=== PATIENT | male | born 1950 | race Caucasian/White ===

== ENCOUNTER 2024-11-24 12:41 | Outpatient (CLI) | payer MEDICARE, SELFPAY ==
[2024-11-24 12:05] LABS: Abs Immature Grans 0.01 10^3/uL (0.0-0.06); HCT 36.6 % (40.0-50.0); HGB 12.0 g/dL (13.5-17.5); Immature Grans % 0.2 %; MCH 33.0 pg (27.0-33.0); MCHC 32.8 % (32.0-36.0); MCV 101 fL (80-95); MPV 9.5 fL (8.0-11.0); Platelet Count 397 10^3/uL (130-400); RBC 3.64 10^6/uL (4.36-5.78); RDW 15.6 % (11.8-14.1); RDW-SD 56.5 fL; WBC 4.46 10^3/uL (4.4-10.8)
[2024-11-24 12:18] LABS: ALT 22 U/L (16-63); AST 21 U/L (15-37); Albumin 3.9 g/dL (3.4-5.0); Alkaline Phosphatase 75 U/L (46-116); Anion Gap 4.8 mmol/L (3-11); BUN 13 mg/dL (7-18); Bilirubin, Total 0.4 mg/dL (0.2-1.0); CO2 30.2 mmol/L (21.0-32.0); Calcium 9.5 mg/dL (8.5-10.1); Chloride 104 mmol/L (98-107); Estimated GFR 78.49 (mL/min/1.73m2); Glucose 106 mg/dL (74-106); LDH 200 U/L (85-227); Potassium 4.6 mmol/L (3.5-5.1); Sodium 139 mmol/L (136-145); Total Protein 8.4 g/dL (6.4-8.2)
== END 2024-11-24 12:42 | disposition home or self-care (01) ==
PROVIDERS: Visit Provider Internal Medicine Hematology & Oncology
DX: C84.A0 Cutaneous T-cell lymphoma, unspecified, unspecified site (principal)
CPT/HCPCS: 36415; 80053; 83615; 85025

== ENCOUNTER 2024-12-15 15:14 | Outpatient (CLI) | payer MEDICARE, SELFPAY ==
[2024-12-15 10:06] LABS: Abs Immature Grans 0.01 10^3/uL (0.0-0.06); HCT 36.1 % (40.0-50.0); HGB 11.8 g/dL (13.5-17.5); Immature Grans % 0.2 %; MCH 32.9 pg (27.0-33.0); MCHC 32.7 % (32.0-36.0); MCV 101 fL (80-95); MPV 9.6 fL (8.0-11.0); Platelet Count 374 10^3/uL (130-400); RBC 3.59 10^6/uL (4.36-5.78); RDW 16.4 % (11.8-14.1); RDW-SD 59.7 fL; WBC 5.12 10^3/uL (4.4-10.8)
[2024-12-15 10:22] LABS: ALT 22 U/L (16-63); AST 17 U/L (15-37); Albumin 3.7 g/dL (3.4-5.0); Alkaline Phosphatase 65 U/L (46-116); Anion Gap 7.0 mmol/L (3-11); BUN 13 mg/dL (7-18); Bilirubin, Total 0.4 mg/dL (0.2-1.0); CO2 29.0 mmol/L (21.0-32.0); Calcium 9.2 mg/dL (8.5-10.1); Chloride 102 mmol/L (98-107); Estimated GFR 70.01 (mL/min/1.73m2); Glucose 113 mg/dL (74-106); LDH 167 U/L (85-227); Potassium 4.6 mmol/L (3.5-5.1); Sodium 138 mmol/L (136-145); Total Protein 7.8 g/dL (6.4-8.2)
== END 2024-12-15 15:15 | disposition home or self-care (01) ==
LOC: LBO 15:14
PROVIDERS: Visit Provider Internal Medicine Hematology & Oncology
DX: C84.A0 Cutaneous T-cell lymphoma, unspecified, unspecified site (principal)
CPT/HCPCS: 36415; 80053; 83615; 85025

== ENCOUNTER 2025-01-05 08:10 | Outpatient (CLI) | payer MEDICARE, SELFPAY ==
[2025-01-05 08:04] LABS: Abs Immature Grans 0.01 10^3/uL (0.0-0.06); HCT 33.3 % (40.0-50.0); HGB 10.9 g/dL (13.5-17.5); Immature Grans % 0.2 %; MCH 33.2 pg (27.0-33.0); MCHC 32.7 % (32.0-36.0); MCV 102 fL (80-95); MPV 9.1 fL (8.0-11.0); Platelet Count 351 10^3/uL (130-400); RBC 3.28 10^6/uL (4.36-5.78); RDW 17.3 % (11.8-14.1); RDW-SD 63.8 fL; WBC 5.45 10^3/uL (4.4-10.8)
[2025-01-05 08:18] LABS: ALT 18 U/L (16-63); AST 18 U/L (15-37); Albumin 3.5 g/dL (3.4-5.0); Alkaline Phosphatase 64 U/L (46-116); Anion Gap 6.9 mmol/L (3-11); BUN 16 mg/dL (7-18); Bilirubin, Total 0.3 mg/dL (0.2-1.0); CO2 28.1 mmol/L (21.0-32.0); Calcium 8.6 mg/dL (8.5-10.1); Chloride 107 mmol/L (98-107); Estimated GFR 78.49 (mL/min/1.73m2); Glucose 91 mg/dL (74-106); LDH 169 U/L (85-227); Potassium 4.1 mmol/L (3.5-5.1); Sodium 142 mmol/L (136-145); Total Protein 7.2 g/dL (6.4-8.2)
== END 2025-01-05 08:11 | disposition home or self-care (01) ==
LOC: LBO 08:10
PROVIDERS: Visit Provider Internal Medicine Hematology & Oncology
DX: C84.A0 Cutaneous T-cell lymphoma, unspecified, unspecified site (principal)
CPT/HCPCS: 36415; 80053; 83615; 85025

== ENCOUNTER 2025-01-26 12:14 | Outpatient (CLI) | payer MEDICARE, SELFPAY ==
[2025-01-26 08:49] LABS: Abs Immature Grans 0.01 10^3/uL (0.0-0.06); HCT 34.2 % (40.0-50.0); HGB 11.1 g/dL (13.5-17.5); Immature Grans % 0.2 %; MCH 33.5 pg (27.0-33.0); MCHC 32.5 % (32.0-36.0); MCV 103 fL (80-95); MPV 9.3 fL (8.0-11.0); Platelet Count 449 10^3/uL (130-400); RBC 3.31 10^6/uL (4.36-5.78); RDW 18.0 % (11.8-14.1); RDW-SD 67.8 fL; WBC 5.32 10^3/uL (4.4-10.8)
[2025-01-26 09:12] LABS: ALT 16 U/L (16-63); AST 17 U/L (15-37); Albumin 3.4 g/dL (3.4-5.0); Alkaline Phosphatase 69 U/L (46-116); Anion Gap 8.2 mmol/L (3-11); BUN 15 mg/dL (7-18); Bilirubin, Total 0.3 mg/dL (0.2-1.0); CO2 29.8 mmol/L (21.0-32.0); Calcium 8.8 mg/dL (8.5-10.1); Chloride 105 mmol/L (98-107); Glucose 93 mg/dL (74-106); LDH 184 U/L (85-227); Potassium 4.3 mmol/L (3.5-5.1); Sodium 143 mmol/L (136-145); Total Protein 7.6 g/dL (6.4-8.2)
== END 2025-01-26 12:15 | disposition home or self-care (01) ==
LOC: LBO 12:14
PROVIDERS: Visit Provider Internal Medicine Hematology & Oncology
DX: C84.A0 Cutaneous T-cell lymphoma, unspecified, unspecified site (principal)
CPT/HCPCS: 36415; 80053; 83615; 85025